=== PATIENT | male | born 1965 | race Caucasian/White ===

== ENCOUNTER 2023-02-28 11:32 | Emergency (ER) | payer OTHER ==
[~2023-02-28] VITALS: Ht 182.9 cm; Wt 95.0 kg
[~2023-02-28 11:32] MED LIST: ADALAT CC30 MG OR; AMOX/K CLAV875 M1 PO; AMOXICILLIN875 MG PO; AUGMENTIN875TAB PO; BENAZEPRIL10 M1 PO; FLEXERIL OR; FLONASE NASAL50 MCG; LISINOP/HCTZ1 TA1 PO; LISINOP/HCTZ1 TAB PO; LORTAB 10 OR; LORTAB 10-325 M1 TAB PO; LORTAB5 PO; NAPROSYN500 MG OR; NO HOME MEDS; TRAMADOL HCL50 MG PO; ZITHROMAX500 MG PO
[2023-02-28 11:44] VITALS: BP 128/85
[2023-02-28] MEDS ORDERED: CYCLOBENZAPRINE10 MG PO (12:43)
[2023-02-28 12:56] VITALS: BP 128/85
== END 2023-02-28 13:09 | disposition home or self-care (01) | DRG 556 ==
LOC: ED 11:32
DX: M62.838 Other muscle spasm (principal)

== ENCOUNTER 2024-04-18 17:59 | Emergency (ER) | payer SELFPAY ==
[~2024-04-18] VITALS: Ht 182.9 cm; Wt 97.0 kg
[~2024-04-18 17:59] MED LIST changes: +CYCLOBENZAPRINE10 MG PO
[2024-04-18] MEDS ORDERED: ATENOLOL 50 MG/TAB PO ONE (20:20)
[2024-04-18] MEDS ORDERED: TENORMIN PO (20:21)
[2024-04-18 20:41] VITALS: BP 147/95
== END 2024-04-18 20:45 | disposition home or self-care (01) | DRG 951 ==
LOC: ED 17:59
DX: Z76.0 Encounter for issue of repeat prescription (principal); I10 Essential (primary) hypertension

== ENCOUNTER 2024-09-23 08:21 | Emergency (ER) | payer OTHER ==
[2024-09-23] VITALS (11 sets, daily range): BP systolic 114–162; BP diastolic 76–93
[~2024-09-23] VITALS: Ht 182.9 cm; Wt 98.0 kg
[~2024-09-23 08:21] MED LIST changes: +TENORMIN PO
[2024-09-23] MEDS ORDERED: MORPHINE SULFATE 4 MG/ML VIAL IV ONE (09:25)
[2024-09-23] MEDS ORDERED: ONDANSETRON HCl 4 MG/2 ML SDV IV ONE (09:25)
[2024-09-23] MEDS ORDERED: ISOVUE-300 (Iopamidol) 100 ML SDV IV ONE (09:25)
[2024-09-23 10:20] LABS: BASO% 0.7 % (0-3); EOS% 2.2 % (0-8); HEMATOCRIT 38.6 % (39.0-50.0); HEMOGLOBIN 13.4 g/dl (14.0-18.0); IMMATURE GRANULOCYTES 0.4 % (0.0-5.0); LYMPH% 14.3 % (15-41); MEAN CORPUSCULAR HGB 33.3 pG CALC (26.0-32.0); MEAN CORPUSCULAR HGB CONC 34.7 g/dL CAL (32.0-36.0); MONO% 7.9 % (2-13); NEUT# 5.69 thou/uL (1.82-7.42); NEUT% 74.5 % (42-76); RED BLOOD COUNT 4.02 mill/uL (4.70-6.10); RED CELL DISTRI WIDTH 12.6 % (11.5-15.5)
[2024-09-23 11:50] LABS: ALBUMIN 4.4 g/dL (3.2-5.0); BILIRUBIN, TOTAL 0.6 mg/dL (0.2-1.3); CREATININE 1.2 mg/dL (0.7-1.3); TOTAL PROTEIN 7.3 g/dL (6.3-8.2)
[2024-09-23] MEDS ORDERED: NAPROXEN500 MG PO (12:59)
[2024-09-23] MEDS ORDERED: HYDROCO/APAP1 TA9 PO (12:59)
== END 2024-09-23 13:07 | disposition home or self-care (01) | DRG 607 ==
LOC: ED 08:21
PROVIDERS: Family Medicine
DX: R22.0 Localized swelling, mass and lump, head (principal); I10 Essential (primary) hypertension
CPT/HCPCS: J2405; Q9967